=== PATIENT | female | born 1955 | race Caucasian/White ===

== ENCOUNTER 2019-05-17 08:42 | Emergency (ER) | payer MEDICARE, OTHER, SELFPAY ==
--- NOTE | 2019-05-17 08:55 | ED.SKABFB ---
HPI - Skin/Abscess/Foreign Bdy General Chief complaint: Allergic Reaction Stated complaint: Rash Right Eye/ R/L forearm Time Seen by Provider: 05/17/19 08:58 Source: patient and RN notes reviewed Mode of arrival: ambulatory Limitations: no limitations History of Present Illness HPI narrative: 64-year-old female presents with concern for rash. Reports 2 days ago she was working in the yard clearing weeds. Reports she was wearing long sleeve shirt. Reports noticing a rash yesterday to both in her wrists and to her right eye. She denies any shortness of breath, swollen lips, swollen tongue, itchy tongue, nausea, vomiting, diarrhea, wheezing. Denies any drainage from the rash. Reports using lye soap with no relief. She denies vision changes, drainage from the eye. MD complaint: rash Related Data Home Medications Medication Instructions Recorded Confirmed fenofibric acid (choline) mg PO 05/17/19 olopatadine [Pazeo] 05/17/19 pantoprazole PO 05/17/19 Allergies Allergy/AdvReac Type Severity Reaction Status Date / Time hydromorphone [From Dilaudid] Allergy Intermediate Rash Verified 05/17/19 09:03 propoxyphene Allergy Intermediate Rash Verified 05/17/19 09:03 minocycline Allergy Mild Rash Verified 05/17/19 09:03 niacin Allergy Unknown RASH Verified 04/30/14 15:49 Review of Systems Review of Systems: Narrative: CONSTITUTIONAL: Denies malaise, chills, sweats, or fever. EYES: Denies visual changes, redness, or discharge. Reports eyelid itching, swelling ENT: Denies rhinorrhea, congestion, sinus pain, otalgia or sore throat. Denies itchy tongue, swollen tongue, swollen lips CARDIOVASCULAR: Denies chest pain, palpitations RESPIRATORY: Denies cough or dyspnea. GASTROINTESTINAL: Denies abdominal pain, nausea, vomiting, diarrhea SKIN: Reports itchy rash on bilateral inner wrists, right eye MUSCULOSKELETAL: Denies myalgia. NEUROLOGIC: Denies headache. All systems reviewed & are unremarkable except as noted in HPI and below PMFSH Comments At time of signature, agree with nursing past medical, surgical, social and family history. There is no relevant family history pertinent to the presenting complaint Exam Narrative: Exam Narrative: GENERAL: Well-appearing, well-nourished, and in no acute distress. HEAD: Normocephalic, atraumatic. EYES: PERRLA, conjunctivae and sclera clear, and EOMI. No nystagmus. Right superficial eyelid erythema, edema, consistent with contact dermatitis ENT: Nares clear. Mucous membranes moist. Oropharynx without edema, erythema or lesions. NECK: Supple. CHEST: No respiratory distress. Clear to auscultation. No bony deformities, no asymmetry. Speaks in full sentences. HEART: Regular rate and rhythm. SKIN: Warm, dry. Erythematous and mildly edematous patches on bilateral inner wrists and right upper eyelid NEURO: Alert and oriented x3. PSYCH: Normal mood and affect Course Course Emergency Course: Patient is aware of diagnosis, understands and agrees to treatment plan. Anticipatory guidance given. Patient agrees to follow-up as directed and is aware of reasons to seek care at the emergency department. Portions of this record may have been created with voice recognition software Vital Signs Vital signs: Vital Signs Temperature 97.9 F 05/17/19 08:56 Pulse Rate 67 05/17/19 08:56 Respiratory Rate 16 05/17/19 08:56 Blood Pressure 142/67 H 05/17/19 08:56 Pulse Oximetry 98 05/17/19 08:56 Temperature 97.9 F 05/17/19 08:56 Pulse Rate 67 05/17/19 08:56 Respiratory Rate 16 05/17/19 08:56 Blood Pressure 142/67 H 05/17/19 08:56 Pulse Oximetry 98 05/17/19 08:56 Reviewed. Patient has history of hypertension MDM - Skin/Abscess/Foreign Bdy MDM Narrative Medical decision making narrative: Does not appear at this time to be erythema multiforme, bullous, SJS, TEN; no evidence at this time to suggest RMSF, endocarditis or Lyme disease; patient looks well, nontoxic and is tolerating
[2019-05-17 08:56] VITALS: BP 142/67; PULSE 67; RESP 16; TEMP 36.6; O2SAT 98
== END 2019-05-17 09:15 | disposition home or self-care (01) ==
PROVIDERS: Emergency Provider Nurse Practitioner
DX: L25.5 Unspecified contact dermatitis due to plants, except food (principal)
CPT/HCPCS: 99213; G0463